=== PATIENT | female | born 1945 | race Caucasian/White ===

== ENCOUNTER 2016-12-15 11:54 | Emergency (ER) | payer OTHER, BC ==
--- NOTE | 2016-12-15 12:03 | PDOC ---
History of Present Illness - General Chief Complaint: Pain Stated Complaint: RIGHT FACE, EAR, JAW PAIN X 2 DAYS Time Seen by Provider: 12/15/16 12:00 History Source: Patient Exam Limitations: No Limitations - History of Present Illness Initial Comments: 71 y/o F w/no sig PMH presents to [facility] for R ear pain for the last 2 days. Pt has also noticed decreased hearing in R ear over last two days. 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 The pain in ear is also causing headache and some jaw pain. She felt like she had some wetness in her R ear but denies any discharge from her ear or any swelling around her ear. Pt denies any trauma to ear, recent flights, loud sounds recently, fevers, chills, tears or drainage from eyes and nose, cough, sore throat, sob, chest pain, abd pain, peripheral swelling. Past History - Travel Traveled outside of the country in the last 30 days: No Close contact w/someone who was outside of country & ill: No - Past Medical History Allergies/Adverse Reactions: Allergies Allergy/AdvReac Type Severity Reaction Status Date / Time Sulfa (Sulfonamide Allergy Mild Verified 12/15/16 12:01 Antibiotics) [Sulfa(Sulfonamide Antibiotics)] Tetracyclines Allergy Unknown Verified 12/15/16 12:01 Home Medications: Ambulatory Orders Amoxicillin/Potassium Clav [Augmentin 500-125 Tablet] 1 each PO BID #14 tablet 12/15/16 Ibuprofen [Advil -] 200 mg PO ONCE 12/15/16 Thyroid Disease: Yes - Psycho/Social/Smoking Cessation Hx Anxiety: No Suicidal Ideation: No Smoking Status: No Smoking History: Never smoked Have you smoked in the past 12 months: No Number of Cigarettes Smoked Daily: 0 Hx Alcohol Use: No Drug/Substance Use Hx: No Substance Use Type: None Review of Systems - Review of Systems Able to Perform ROS?: Yes Comments:: CONSTITUTIONAL: Absent: fever, no chills, EYES: Absent: visual changes, eye drainage 0ENT: +R ear pain, +decreased hearing in R ear, +R sided jaw pain Absent: no sore throat, ear drainage, nasal drainage CARDIOVASCULAR: Absent: chest pain, no palpitations RESPIRATORY: Absent: cough, no SOB GI: Absent: abdominal pain, no nausea, no vomiting SKIN: Absent: rash NEURO: +headache *Physical Exam - Physical Exam Comments: GENERAL: Well-appearing, well-nourished. No apparent distress. HEENT: +R ear perforated tympanic membrane with no drainage. +Decreased finger rub hearing on R compared to L. L ear tympanic membrane intact with +light reflex and no drainage. Normocephalic, atraumatic. EOM intact. No sinus pressure or pain. CARDIOVASCULAR: Normal S1, S2. Regular rate and rhythm. PULMONARY: Clear to auscultation bilaterally. ABDOMEN: Soft, non-distended, non-tender. EXTREMITIES: Normal ROM in all four extremities. No gross deformities. SKIN: Warm, dry. No rash NEUROLOGICAL: No focal neurological deficits Medical Decision Making - Medical Decision Making 12/15/16 12:29 Pt with R ear drum perforation on physical exam. Will prescribe augmentin 500 bid for 7 days and to follow up with ENT within the next week. Dr. Paul Cooper referred to patient. Pt advised to come back to ER if symptoms worsen. *DC/Admit/Observation/Transfer Diagnosis at time of Disposition: Perforated tympanic membrane Qualifiers: Laterality: right Qualified Code(s): H72.91 - Unspecified perforation of tympanic membrane, right ear - Discharge Dispostion Disposition: HOME Condition at time of disposition: Stable - Prescriptions Prescriptions: Amoxicillin/Potassium Clav [Augmentin 500-125 Tablet] 1 each PO BID #14 tablet - Referrals Referrals: Paul Cooper MD [Staff Physician] - - Patient Instructions Printed Discharge Instructions: DI for Tympanic Membrane Perforation-Adult Additional Instructions: You must see an ears nose throat physician for your perforated right ear drum. You can see Dr. Paul Cooper for your perforated ear drum. You should also follow up with your primary care physician. You have been prescribed augmentin, an antibiotic, to take 2 times per day for 7 days. Complete the full course of this medication. Keep your right ear from getting wet. While showering wear a shower cap. Do not use q-tips or ear swabs in your ears. If your symptoms worsen, come back to the emergency room.
[2016-12-15 12:11] VITALS: BP 140/82; PULSE 80; TEMP 97.8; BMI 25.2
--- NOTE | 2016-12-15 12:22 | PDOC ---
Attending Attestation - Resident Resident Name: Agustin Alcala - ED Attending Attestation I have performed the following: I have examined & evaluated the patient, The case was reviewed & discussed with the resident, I agree w/resident's findings & plan, Exceptions are as noted - HPI HPI: 12/15/16 12:17 The patient is a 71 year old female, immunocompetent, who presents with right ear pain for several days. She has had slow chronic progressive hearing loss in that ear, which she attributes to occupational exposure to loud noises. The hearing loss worsened two days ago. See denies fever. She denies discharge. No air travel. No ear trauma. She has an ENT physician. 12/15/16 12:22 - Physicial Exam PE: 12/15/16 12:18 She is well appearing and in no acute distress Right TM with inferior perforation No tenderness with ear manipulation No tenderness with mastoid percussion - Medical Decision Making 12/15/16 12:22 The patient is well-appearing and in no acute distress There is physical examination evidence of right-sided tympanic membrane perforation She will follow up with her ear nose and throat physician on Saturday or Saturday Clinical impression: Right-sided tympanic membrane perforation I discussed the physical exam findings, ancillary test results and final diagnoses with the patient. I answered all of the patient's questions. The patient was satisfied with the care received and felt comfortable with the discharge plan and treatment plan. The patient will call their primary care physician within 24 hours to arrange follow-up and will return to the Emergency Department with any new, persistent or worsening symptoms.
== END 2016-12-15 12:40 | disposition home or self-care (01) ==
LOC: FER 11:54 → SUPCPDRO 11:54 → FER 12:40
DX: H72.91 Unspecified perforation of tympanic membrane, right ear (principal)
CPT/HCPCS: 99281-25

== ENCOUNTER 2017-07-04 08:25 | Emergency (ER) | payer OTHER, BC ==
[2017-07-04] MEDS ORDERED: NAPROXEN 500 MG TABLET (FP) PO ONE (08:53)
[2017-07-04] MEDS ORDERED: guaiFENesin 200 MG/10 ML 10 ML UNIT-DOSE CUPS PO ONE ×2 (08:53→08:54)
[2017-07-04 08:54] VITALS: BP 151/90; PULSE 83; TEMP 98; BMI 25.2
--- NOTE | 2017-07-04 08:55 | PDOC ---
History of Present Illness - General Chief Complaint: Sore Throat Stated Complaint: SORE THROAT Time Seen by Provider: 07/04/17 08:35 History Source: Patient Exam Limitations: No Limitations - History of Present Illness Initial Comments: 07/04/17 08:58 72 year old female c/ hx of goiter (under observation, not on meds) presents with sore throat and nonproductive cough x several days. Pt's daughter was initially sick with URI. And now the patient has for the last few days been endorsing these symptoms. Denies SOB. Denies chest pain, fevers. States that she has been coughing persistently and has a sore throat. She has been taking benadryl, dayquil, nyquil with minimal effect. Because of the persistent coughing, pt came into the ED for further evaluation. Past History - Past Medical History Allergies/Adverse Reactions: Allergies Allergy/AdvReac Type Severity Reaction Status Date / Time Sulfa (Sulfonamide Allergy Mild Verified 07/04/17 08:26 Antibiotics) [Sulfa(Sulfonamide Antibiotics)] Tetracyclines Allergy Unknown Verified 07/04/17 08:26 Home Medications: Ambulatory Orders Albuterol Sulfate Inhaler - [Ventolin Hfa Inhaler -] 1 - 2 inh PO QID PRN #1 inhaler 07/04/17 Benzonatate [Tessalon Pearls -] 100 mg PO TID PRN #21 capsule 07/04/17 D-Methorphan/Acetamin/Doxylamn [Vicks Nyquil Cold & Flu Liquid] 295 ml PO PRN PRN 07/04/17 Naproxen [Naprosyn -] 500 mg PO BID PRN #14 tablet 07/04/17 Thyroid Disease: Yes - Suicide/Smoking/Psychosocial Hx Smoking Status: No Smoking History: Never smoked Have you smoked in the past 12 months: No Number of Cigarettes Smoked Daily: 0 Hx Alcohol Use: No Drug/Substance Use Hx: No Substance Use Type: None Review of Systems - Review of Systems Able to Perform ROS?: Yes Comments:: 07/04/17 08:59 GENERAL/CONSTITUTIONAL: No fever, weakness. HEAD, EYES, EARS, NOSE AND THROAT: No change in vision. No ear pain or discharge. + sore throat. CARDIOVASCULAR: No chest pain or shortness of breath. RESPIRATORY: +cough. No wheezing, or hemoptysis. GASTROINTESTINAL: No abdominal pain, nausea, vomiting, diarrhea, or decreased PO intolerance. GENITOURINARY: No dysuria, frequency, or change in urination. MUSCULOSKELETAL: No joint or muscle swelling or pain. No neck or back pain. SKIN: No rash NEUROLOGIC: No headache, vertigo, loss of consciousness, or change in strength/ sensation. ENDOCRINE: No increased thirst. No abnormal weight change. HEMATOLOGIC/LYMPHATIC: No anemia, easy bleeding, or history of blood clots. ALLERGIC/IMMUNOLOGIC: No hives or skin allergy. *Physical Exam - Physical Exam Comments: 07/04/17 08:59 GENERAL: Awake, alert, and fully oriented, in no acute distress. HEAD: No signs of trauma EYES: PERRLA, EOMI, sclera anicteric, conjunctiva clear ENT: Auricles normal inspection, hearing grossly normal, nares patent, oropharynx clear without exudates. NECK: Normal ROM, supple, no lymphadenopathy, JVD, or masses LUNGS: Breath sounds equal, clear to auscultation bilaterally. No wheezes, and no crackles HEART: Regular rate and rhythm, normal S1 and S2, no murmurs, rubs or gallops ABDOMEN: Soft, nontender, normoactive bowel sounds. No guarding, no rebound. No masses EXTREMITIES: Normal range of motion, no edema. No clubbing or cyanosis. No cords, erythema, or tenderness NEUROLOGICAL: Cranial nerves II through XII grossly intact. Normal speech, normal gait SKIN: Warm, Dry, normal turgor, no rashes or lesions noted. Medical Decision Making - Medical Decision Making 07/04/17 09:00 Vital Signs Temp Pulse Resp BP Pulse Ox 98 F 83 20 151/90 98 07/04/17 08:26 07/04/17 08:26 07/04/17 08:26 07/04/17 08:26 07/04/17 08:26 Patient's lungs are clear and breathing is unlabored. Oropharynx is clear. I suspect patient likely has a viral syndrome. However, given her age, I had given her strict return precautions if her symptoms worsen. Supportive care and follow-up primary care physician. I discussed the physical exam findings, ancillary test results and final diagnoses with the patient. I answered all of the patient's questions. The patient was satisfied with the care received and felt comfortable with the discharge plan and treatment plan. The patient will call their primary care physician within 24 hours to arrange follow-up and will return to the Emergency Department with any new, persistant or worsening symptoms. *DC/Admit/Observation/Transfer Diagnosis at time of Disposition: Viral syndrome - Discharge Dispostion Disposition: HOME Condition at time of disposition: Stable Admit: No - Prescriptions Prescriptions: Albuterol Sulfate Inhaler - [Ventolin Hfa Inhaler -] 1 - 2 inh PO QID PRN #1 inhaler PRN Reason: Cough Benzonatate [Tessalon Pearls -] 100 mg PO TID PRN #21 capsule PRN Reason: Cough Naproxen [Naprosyn -] 500 mg PO BID PRN #14 tablet PRN Reason: Sore Throat/Fever - Referrals - Patient Instructions Printed Discharge Instructions: DI for Viral Pharyngitis, DI for Viral Syndrome Additional Instructions: Please follow up with your doctor. Take the prescribed medications as needed for symptom control. If you notice that your symptoms are worsening for the last several few days, or difficulty breathing, please return to the ER for further evaluation. - Post Discharge Activity
[2017-07-04] MEDS ORDERED: guaiFENesin/D-METHORPHAN HB 10 ML UNIT-DOSE CUPS ONE (08:57)
[2017-07-04] MEDS ORDERED: NAPROXEN 500 MG TABLET (FP) ONE (08:57)
== END 2017-07-04 09:03 | disposition home or self-care (01) ==
LOC: FER 08:25
DX: B34.9 Viral infection, unspecified (principal)
CPT/HCPCS: 99282-25

== ENCOUNTER 2017-08-24 11:21 | Emergency (ER) | payer OTHER, BC ==
[2017-08-24] MEDS ORDERED: SODIUM CHLORIDE 1,000 ML IV STA (11:29)
[2017-08-24] MEDS ORDERED: ACETAMINOPHEN W/ CODEINE LIQ 5 ML CUP PO ONE (11:30)
[2017-08-24 11:39] VITALS: BP 148/72; PULSE 72; TEMP 97.6; BMI 24.9
[2017-08-24] MEDS ORDERED: ACETAMINOPHEN W/ CODEINE LIQ 5 ML CUP ONE (11:39)
--- NOTE | 2017-08-24 11:39 | PDOC ---
History of Present Illness - General Chief Complaint: Respiratory Stated Complaint: COUGH & CHEST PAIN Time Seen by Provider: 08/24/17 11:28 - History of Present Illness Initial Comments: 08/24/17 11:34 72 F with no PMH presents to ER with 4 days of cough and sore throat. Pt states that she first began to cough on Saturday, bringing up clear phlegm. She endorses subjective fevers as well with no measured temps, as well as a sore throat. Pt went to urgent care today and had flu swab that was negative. While at urgent care, she also described chest pressure associated with coughing, and she was subsequently sent to ER for further evaluation. Pt denies any chest pain at this time but states that she experiences chest pressure when she coughs. Denies exertional or pleuritic chest pain. Denies any SOB. Denies leg swelling or orthopnea. Denies h/o DVT/PE. Denies recent travel/ immobilization. Past History - Past Medical History Allergies/Adverse Reactions: Allergies Allergy/AdvReac Type Severity Reaction Status Date / Time Sulfa (Sulfonamide Allergy Mild Verified 07/04/17 08:26 Antibiotics) [Sulfa(Sulfonamide Antibiotics)] Tetracyclines Allergy Unknown Verified 07/04/17 08:26 Home Medications: Ambulatory Orders Albuterol Sulfate Inhaler - [Ventolin Hfa Inhaler -] 1 - 2 inh PO QID PRN #1 inhaler 07/04/17 Benzonatate [Tessalon Pearls -] 100 mg PO TID PRN #21 capsule 07/04/17 Dm/Acetaminophen/Doxylamine [Vicks Nyquil Cold & Flu Liquid] 295 ml PO PRN PRN 07/04/17 Naproxen [Naprosyn -] 500 mg PO BID PRN #14 tablet 07/04/17 RX: Azithromycin 250 mg PO DAILY #4 tablet 08/24/17 COPD: No Thyroid Disease: Yes - Suicide/Smoking/Psychosocial Hx Smoking Status: No Smoking History: Never smoked Have you smoked in the past 12 months: No Number of Cigarettes Smoked Daily: 0 Hx Alcohol Use: No Drug/Substance Use Hx: No Substance Use Type: None Respiratory Specific PMHX - Complaint Specific PMHX Angina: No Pulmonary Embolus: No Review of Systems - Review of Systems Comments:: 08/24/17 11:39 "GENERAL/CONSTITUTIONAL: No fever or chills. No weakness. HEAD, EYES, EARS, NOSE AND THROAT: No change in vision. No ear pain or discharge. No sore throat. CARDIOVASCULAR: + chest pressure, no shortness of breath. RESPIRATORY: + cough, no wheezing, or hemoptysis. GASTROINTESTINAL: No nausea, vomiting, diarrhea or constipation. GENITOURINARY: No dysuria, frequency, or change in urination. MUSCULOSKELETAL: No joint or muscle swelling or pain. No neck or back pain. SKIN: No rash NEUROLOGIC: No headache, vertigo, loss of consciousness, or change in strength/ sensation. ENDOCRINE: No increased thirst. No abnormal weight change. HEMATOLOGIC/LYMPHATIC: No anemia, easy bleeding, or history of blood clots. ALLERGIC/IMMUNOLOGIC: No hives or skin allergy. " *Physical Exam - Physical Exam Comments: 08/24/17 11:40 "GENERAL: Awake, alert, and fully oriented, in no acute distress HEAD: No signs of trauma EYES: PERRLA, EOMI, sclera anicteric, conjunctiva clear ENT: Auricles normal inspection, hearing grossly normal, nares patent, oropharynx clear without exudates. Moist mucosa NECK: Nontender, no stepoffs, Normal ROM, supple, no lymphadenopathy, JVD, or masses LUNGS: Breath sounds equal, clear to auscultation bilaterally. No wheezes, and no crackles HEART: Regular rate and rhythm, normal S1 and S2, no murmurs, rubs or gallops ABDOMEN: Soft, nontender, normoactive bowel sounds. No guarding, no rebound. No masses EXTREMITIES: Normal range of motion, no edema. No clubbing or cyanosis. No cords, erythema, or tenderness NEUROLOGICAL: Cranial nerves II through XII intact. 5/5 strength and sensation in all extremities, Normal speech, normal gait SKIN: Warm, Dry, normal turgor, no rashes or lesions noted. " Heart Score/ECG Review - History History: Slightly suspicious - Electrocardiogram EKG: Normal - Age Age: >/= 65 - Risk Factors Based on the list above the patient has:: No risk factors known - Troponin Troponin: </= normal limit - Score Heart Score - Total: 2 - ECG Impressions Comment:: 08/24/17 11:40 NSR, no ALIE/STDs, no TWIs, axis wnl, intervals wnl ED Treatment Course - LABORATORY CBC & Chemistry Diagram: 08/24/17 11:35 08/24/17 11:35 - RADIOLOGY Radiology Studies Ordered: Category Date Time Status CHEST PA & LAT [RAD] Stat Radiology 08/24/17 11:29 Ordered Medical Decision Making - Medical Decision Making 08/24/17 11:42 72 F with URI-like symptoms, referred to ER for chest pressure with cough. ACS unlikely given nonischemic EKG and atypical nature of pain. Pt with normal vitals, no s/s DVT or PE on exam. No clinicaly signs of volume overload either. Will obtain CXR to r/o PNA. - Labs, trop - CXR 08/24/17 12:55 Labs wnl, trop negative EKG wnl. CXR with ?infiltrate. Given pt's cough, will cover with azithromycin. Pt reassessed - feels well at this time. VItals normal. Clinically stable for DC. I discussed the physical exam findings, ancillary test results and final diagnoses with the patient. I answered all of the patient's questions. The patient was satisfied with the care received and felt comfortable with the discharge plan and treatment plan. The patient agrees to follow up with the primary care physician within 24-72 hours. 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 Your labwork and EKG today were normal. However, we cannot rule out all heart disease based on these tests. You need to see a rig superintendent as soon as possible (within 1 week) for a full evaluation of your heart. Call the number provided or ask your primary doctor for a referral to a rig superintendent. If you experience worsening chest pain, shortness of breath, or any other concerning symptoms, return to the ER immediately. - Post Discharge Activity - Attestations Physician Attestion: 08/24/17 12:58 I, Dr. Cachorro Ty MD, attest that this document has been prepared under my direction and personally reviewed by me in its entirety. I further attest, that it accurately reflects all work, treatment, procedures and medical decision -making performed by me.
[2017-08-24 11:50] LABS: BASO % 0.6 % (0-2.0); EOS % 0.9 % (0-4.5); HEMATOCRIT 37.5 % (32.4-45.2); HEMOGLOBIN 12.6 GM/dl (10.7-15.3); LYMPH % 4.8 % (8-40); MCH 28.8 pg (25.7-33.7); MCHC 33.7 g/dl (32.0-36.0); MEAN CELL VOLUME 85.4 fl (80-96); MONO % 8.3 % (3.8-10.2); NEUT % 85.4 % (42.8-82.8); PLATELET COUNT 229 K/MM3 (134-434); RBC 4.39 M/mm3 (3.60-5.2); WHITE BLOOD COUNT 5.8 K/mm3 (4.0-10.8)
[2017-08-24 12:07] LABS: ALBUMIN 4.6 g/dl (3.5-5.0); ALK PHOS 89 U/L (32-92); ANION GAP 7 (8-16); BILIRUBIN,TOTAL 0.8 mg/dl (0.2-1.0); BLOOD UREA NITROGEN 15 mg/dl (7-18); CALCIUM 9.8 mg/dl (8.4-10.2); CHLORIDE 100 mmol/L (98-107); CO2 27 mmol/L (22-28); CREATININE 0.6 mg/dl (0.6-1.3); GLUCOSE,RANDOM 103 mg/dl (74-106); LIPASE 18 U/L (22-51); POTASSIUM 4.2 mmol/L (3.5-5.1); SGOT/AST 18 U/L (10-42); SGPT/ALT 15 U/L (10-40); SODIUM 134 mmol/L (136-145); TOT PROT 8.1 g/dl (6.4-8.3)
[2017-08-24] MEDS ORDERED: AZITHROMYCIN 500 MG TABLET PO ONE (12:47)
[2017-08-24] MEDS ORDERED: AZITHROMYCIN 500 MG TABLET ONE (12:56)
--- NOTE | 2017-08-26 15:57 | EKG ---
Test Reason : Blood Pressure : / mmHG Vent. Rate : 081 BPM Atrial Rate : 081 BPM P-R Int : 160 ms QRS Dur : 090 ms QT Int : 376 ms P-R-T Axes : 074 -13 024 degrees QTc Int : 436 ms NORMAL SINUS RHYTHM RSR' OR QR PATTERN IN V1 SUGGESTS RIGHT VENTRICULAR CONDUCTION DELAY NO PREVIOUS ECGS AVAILABLE Confirmed by MD MENDOZA MARJORY ([id number]) on 08/26/2017 3:56:55 PM Referred By: HEAVENLY Confirmed By:KEVIN MENDOZA MD
== END 2017-08-24 13:08 | disposition home or self-care (01) ==
LOC: FER 11:21
PROC: 3E0337Z Introduction of Electrolytic and Water Balance Substance into Peripheral Vein, Percutaneous Approach (ICD-10-PCS; principal; 2017-08-24)
DX: B34.9 Viral infection, unspecified (principal)
CPT/HCPCS: 36415; 71046-TC; 80053; 82550; 83690; 83880; 84484; 85025; 93005; 99282-25

== ENCOUNTER 2017-11-28 22:59 | Emergency (ER) | payer OTHER, BC ==
[2017-11-28 23:08] VITALS: BP 176/88; PULSE 84; TEMP 97.6; BMI 25.7
[2017-11-28] MEDS ORDERED: KETOROLAC TROMETHAMINE 60 MG/2 ML VIAL IM ONE (23:20)
[2017-11-28] MEDS ORDERED: MAG HYDROX/AL HYDROX/SIMETH 30 ML UNIT-DOSE CUP PO ONE (23:21)
--- NOTE | 2017-11-28 23:22 | PDOC ---
History of Present Illness - General Chief Complaint: Chest Pain Stated Complaint: RT ARM AND CHEST PAIN Time Seen by Provider: 11/28/17 23:05 History Source: Patient Exam Limitations: No Limitations - History of Present Illness Initial Comments: 11/28/17 23:17 This is a 72-year-old female who comes in complaining of pain in her upper shoulder radiating down the outside of her upper arm as well as some epigastric discomfort. Patient said that the shoulder and arm pain began after she was lifting and holding up a heavy mattress yesterday. Patient said the pain has been constant it is worse with movement worse with lifting her arm. Patient took 200 mg of ibuprofen for the pain without improvement. Patient said she is also been having an epigastric discomfort 2 months. Patient saw her primary care doctor had a workup for it and was told that the workup was negative specifically a cardiac workup was negative. Patient however does not indicate that a stress test was part of the negative workup. Patient has no risk factors and denies history of hypertension, high cholesterol, diabetes, family history, smoking or drug use. PAST MEDICAL HISTORY: no significant history PAST SURGICAL HISTORY: no significant history FAMILY HISTORY: no pertinant history SOCIAL HISTORY: Pt lives with family and is employed. MEDICATIONS: reviewed ALLERGIES: As per nursing notes Review of Systems General: No fevers or chills, no weakness, no weight loss HEENT: No change in vision. No sore throat,. No ear pain CardioVascular: No chest pain or shortness of breath Respiratory:No cough, or wheezing. Gastrointestinal: no nausea, vomitting, diarrhea or constipation, No rectal bleeding Genitourinary: No dysuria, hematuria, or frequency Musculoskeletal: No joint or muscle pain or swelling Neurologic: No headache, vertigo, dizziness or loss of consciousness Psychiatric: nor depression Skin: No rashes or easy bruising Endocrine: no increased thirst or abnormal weight change Allergic: no skin or latex allergy All other systems reviewed and normal Exam: General: Well-nourished well-developed individual, in moderate distress HEENT: Throat: Normal, tonsils normal, no erythema or exudate Neck: Supple, no meningeal signs, no lymphadenopathy, cervical spine is not tender to palpation Eyes::Pupils equal reactive and round, extraocular motion intact Chest: Nontender to palpation Cardiac: S1-S2 normal, regular rate and rhythm, no murmurs rubs or gallops Respiratory: Lungs clear to auscultation bilateral Abdomen: Soft, nondistended, normal bowel sounds, nontender to palpation diffusely Extremities: Warm, dry, no cyanosis, clubbing, or edema Right upper extremity: There is tenderness on palpation of the muscles of the arm as well as the upper shoulder and upper back area. Neurovascular is intact. Skin: No rashes Neuro: Alert and oriented x3, CN II - XII intact, nonfocal exam with normal strength, normal sensation, normal reflexes, normal gait, Psych: Normal mood and affect 11/28/17 23:22 Medical decision making: This is a 72-year-old female who comes in complaining of left arm pain post lifting a heavy mattress yesterday. In addition the patient is complaining of 2 months of epigastric discomfort. We will obtain EKG, troponin, CPK. We'll give patient some Maalox and Toradol. We'll reassess and evaluate results of workup. EKG is normal sinus rhythm with a incomplete right bundle branch block. There are no acute ST-T wave changes. When compared with prior EKG of July this year and is unchanged 11/28/17 23:53 Reevaluation. Patient's pain is minimally improved but not resolved. Patient's troponin was negative and her CPK was normal Patient's heart scores 3 Discussed with patient the possibility of the pain most likely being secondary to nerve compression in the neck area. Advised patient to follow-up with her primary care doctor and maybe an MRI. Past History - Past Medical History Allergies/Adverse Reactions: Allergies Allergy/AdvReac Type Severity Reaction Status Date / Time Sulfa (Sulfonamide Allergy Mild Verified 07/04/17 08:26 Antibiotics) [Sulfa(Sulfonamide Antibiotics)] Tetracyclines Allergy Unknown Verified 07/04/17 08:26 Home Medications: Ambulatory Orders Ibuprofen [Motrin Ib] 200 mg PO ONCE 11/28/17 COPD: No Thyroid Disease: Yes - Suicide/Smoking/Psychosocial Hx Smoking Status: No Smoking History: Never smoked Have you smoked in the past 12 months: No Number of Cigarettes Smoked Daily: 0 Hx Alcohol Use: No Drug/Substance Use Hx: No Substance Use Type: None Abd/GI Specific PMHX - Complaint Specific PMHX GERD: Yes *Physical Exam - Vital Signs Last Vital Signs Temp Pulse Resp BP Pulse Ox 97.6 F 84 18 176/88 98 11/28/17 23:05 11/28/17 23:05 11/28/17 23:05 11/28/17 23:05 11/28/17 23:05 Heart Score/ECG Review - History History: Slightly suspicious - Electrocardiogram EKG: Non specific repolarization disturbance - Age Age: >/= 65 - Risk Factors Based on the list above the patient has:: No risk factors known - Troponin Troponin: </= normal limit - Score Heart Score - Total: 3 *DC/Admit/Observation/Transfer Diagnosis at time of Disposition: Right arm pain - Discharge Dispostion Disposition: HOME Condition at time of disposition: Stable Admit: No - Referrals Referrals: ON STAFF,NOT [Primary Care Provider] - - Patient Instructions Additional Instructions: You can continue to take ibuprofen for the pain don't take on an empty stomach take it with food intake 2 tablets 3 times a day. Follow-up with your doctor either tomorrow or Saturday if you still continued to have pain. Return to the emergency department immediately with ANY new, persistent or worsening symptoms. Continue any medications as previously prescribed by your physician. You should follow up with your primary doctor as soon as possible regarding today's emergency department visit. . Please make sure your doctor reviews the results of your emergency evaluation. Thank you for coming to the Emergency Department today for your care. It was a pleasure to see you today. Please note that your evaluation is INCOMPLETE until you follow-up with your doctor. - Post Discharge Activity
--- NOTE | 2017-12-05 14:18 | EKG ---
Test Reason : Blood Pressure : / mmHG Vent. Rate : 074 BPM Atrial Rate : 074 BPM P-R Int : 168 ms QRS Dur : 090 ms QT Int : 390 ms P-R-T Axes : 061 -19 006 degrees QTc Int : 432 ms NORMAL SINUS RHYTHM RSR' OR QR PATTERN IN V1 SUGGESTS RIGHT VENTRICULAR CONDUCTION DELAY BORDERLINE ECG WHEN COMPARED WITH ECG OF 24-AUG-2017 11:52, NO SIGNIFICANT CHANGE WAS FOUND Confirmed by ALIZA TEJEDA, INDU ([id number]) on 12/05/2017 2:18:28 PM Referred By: BETHANIE MALDONADO Confirmed By:INDU ABRAMS MD
== END 2017-11-28 23:58 | disposition home or self-care (01) ==
LOC: FER 22:59
PROC: 3E0233Z Introduction of Anti-inflammatory into Muscle, Percutaneous Approach (ICD-10-PCS; principal; 2017-11-28)
DX: M79.601 Pain in right arm (principal); K21.9 Gastro-esophageal reflux disease without esophagitis
CPT/HCPCS: 36415; 82550; 84484; 93005; 93010; 99281-25

== ENCOUNTER 2019-01-31 05:58 | Emergency (ER) | payer OTHER, BC ==
[2019-01-31 06:08] VITALS: BMI 25.7
--- NOTE | 2019-01-31 06:27 | PDOC ---
History of Present Illness - General Chief Complaint: Pain, Acute Stated Complaint: LT FLANK PAIN Time Seen by Provider: 01/31/19 06:17 History Source: Patient Exam Limitations: No Limitations - History of Present Illness Initial Comments: 01/31/19 06:33 This is a 74-year-old female who comes in complaining of left flank pain. Patient said she has had the pain times several days went to see her primary care doctor 3 days ago but because of the January holiday's was unable to get an ultrasound or any sort of evaluation. However she said her doctor Boby did test her urine and said it was fine but then gave her antibiotics to take. Patient took 3 doses of the antibiotics. Patient denies any fevers or chills. Patient is complaining of some mild nausea but hasn't vomited. Patient is otherwise healthy and takes no medications. Allergies: as per nursing notes Past Medical History: none Social history: Lives with family. No smoking. No alcohol. No illicit drugs. Surgical history: None General: No fevers or chills, no weakness, no weight loss HEENT: No change in vision. No sore throat,. No ear pain CardioVascular: no chest discomfort. No shortness of breath Respiratory:No cough, or wheezing. Gastrointestinal: no nausea, vomiting, diarrhea or constipation, No rectal bleeding, left lower quadrant and left flank pain as per history of present illness Genitourinary: No dysuria, hematuria, or frequency Musculoskeletal: No joint or muscle pain or swelling Neurologic: No headache, vertigo, dizziness or loss of consciousness Psychiatric: nor depression Skin: No rashes or easy bruising Endocrine: no increased thirst or abnormal weight change Allergic: no skin or latex allergy All other systems reviewed and normal Exam: General: Well-nourished well-developed individual, no acute distress HEENT: Throat: Normal, tonsils normal, no erythema or exudate Neck: Supple, no meningeal signs, no lymphadenopathy Eyes::Pupils equal reactive and round, extraocular motion intact Chest: Nontender to palpation Cardiac: S1-S2 normal, regular rate and rhythm, no murmurs rubs or gallops Respiratory: Lungs clear to auscultation bilateral Abdomen: Soft, nondistended, normal bowel sounds, moderate tenderness on palpation of the left lower quadrant there is no guarding or rebound. Extremities: Warm, dry, no cyanosis, clubbing, or edema Skin: No rashes Neuro: Alert and oriented x3, CN II - XII intact, nonfocal exam with normal strength, normal sensation, normal reflexes, normal gait, Psych: Normal mood and affect. Assessment plan: This is a 74-year-old female who comes in complaining of left flank and left lower quadrant pain. On my exam patient had moderate tenderness in her left lower quadrant and very minimal flank tenderness but no CVA tenderness. Patient had seen her primary care doctor and was started on Cipro even though she was told that she did not have a urinary tract infection. Patient took 3 tablets and stop taking it. Workup initiated including CBC, comp, CAT scan abdomen and pelvis with IV contrast. Patient medicated with pain medication and given antiemetics and fluids. Differential diagnoses includes renal colic, diverticulitis, viral etiology, urinary tract infection. Care of this patient was transferred to Dr. Chan at 7 AM. Case discussed in detail with oncoming Emergency Physician including history, physical exam and ancillary studies. Oncoming Emergency Physician has assumed care for the patient and will complete the evaluation and treatment. Patient is aware of the plan. Pt is clinically unchanged and stable. 01/31/19 06:49 Past History - Past Medical History Allergies/Adverse Reactions: Allergies Allergy/AdvReac Type Severity Reaction Status Date / Time Sulfa (Sulfonamide Allergy Mild Verified 07/04/17 08:26 Antibiotics) [Sulfa(Sulfonamide Antibiotics)] Tetracyclines Allergy Unknown Verified 07/04/17 08:26 Home Medications: Ambulatory Orders Ciprofloxacin [Cipro (Restricted To Id)] 250 mg PO BID 01/31/19 COPD: No Thyroid Disease: Yes - Suicide/Smoking/Psychosocial Hx Smoking Status: No Smoking History: Never smoked Have you smoked in the past 12 months: No Number of Cigarettes Smoked Daily: 0 Hx Alcohol Use: No Drug/Substance Use Hx: No Substance Use Type: None Abd/GI Specific PMHX - Complaint Specific PMHX GERD: Yes *Physical Exam - Vital Signs Last Vital Signs Temp Pulse Resp BP Pulse Ox 98.2 F 83 18 157/85 98 01/31/19 06:01 01/31/19 06:01 01/31/19 06:01 01/31/19 06:01 01/31/19 06:01 *DC/Admit/Observation/Transfer Diagnosis at time of Disposition: Abdominal pain Qualifiers: Abdominal location: left lower quadrant Qualified Code(s): R10.32 - Left lower quadrant pain - Discharge Dispostion Condition at time of disposition: Stable - Referrals - Patient Instructions - Post Discharge Activity
[2019-01-31] MEDS ORDERED: morphine CARPU-JECT 2 MG/1 ML DISP.SYRIN IVPUSH ONE ×2 (06:29→11:00)
[2019-01-31] MEDS ORDERED: KETOROLAC TROMETHAMINE 30 MG/1 ML VIAL IVPUSH ONE (06:29)
[2019-01-31] MEDS ORDERED: SODIUM CHLORIDE 1,000 ML IV ONE (06:29)
[2019-01-31] MEDS ORDERED: ONDANSETRON 4 MG/2 ML VIAL IVPB ONE (06:30)
[2019-01-31] MEDS ORDERED: KETOROLAC TROMETHAMINE 30 MG/1 ML VIAL ONE (06:36)
[2019-01-31] MEDS ORDERED: ONDANSETRON 4 MG/2 ML VIAL ONE (06:36)
[2019-01-31] MEDS ORDERED: morphine SULFATE 4 MG/ML VIAL ONE ×2 (06:36→11:20)
--- NOTE | 2019-01-31 07:12 | PDOC ---
*Physical Exam - Vital Signs Last Vital Signs Temp Pulse Resp BP Pulse Ox 98.2 F 83 18 157/85 98 01/31/19 06:01 01/31/19 06:01 01/31/19 06:01 01/31/19 06:01 01/31/19 06:01 - Physical Exam Comments: 01/31/19 08:28 Gen: aaox3, nad heart: +s1s2 reg lungs: cta b/l abd: soft, mild LLQ ttp, no cva ttp, no rebound or guarding ext: no c/c/e ED Treatment Course - LABORATORY CBC & Chemistry Diagram: 01/31/19 06:34 01/31/19 08:15 - Medications Given in the ED: ED Medications Discontinued Medications Generic Name Dose Route Start Last Admin Trade Name Isidro PRN Reason Stop Dose Admin Ketorolac Tromethamine 30 mg 01/31/19 06:29 01/31/19 06:40 Toradol Injection - IVPUSH 01/31/19 06:30 30 mg ONCE ONE Administration Morphine Sulfate 2 mg 01/31/19 06:29 01/31/19 06:40 Morphine Injection - IVPUSH 01/31/19 06:30 2 mg ONCE ONE Administration Ondansetron HCl 4 mg 01/31/19 06:30 01/31/19 06:40 Zofran Injection IVPB 01/31/19 06:31 4 mg ONCE ONE Administration Medical Decision Making - Medical Decision Making 01/31/19 08:29 a/p: 74yo female with LLQ pain -pt signed out by the prior ed attending pending labs and imaging -had ua performed by PMD that was neg, but started on cipro - took 3 doses -still with LLQ pain -concern for diverticulitis vs renal colic -labs and ct pending. -still with pain after morphine, will add iv tylenol 01/31/19 08:55 no elevated wbc chem reviewed pending ct 01/31/19 09:56 pt states allergy to iv contrast, will change to noncontrast 01/31/19 10:11 pt has been ambulatory in the ED with a steady gait pending ct read no acute ua findings 01/31/19 10:59 ct shows gallstones in the neck, ordered ultrasound also thickening of the small bowel- infectious vs infiltrative discussed imaging with the patient. she still has pain. will start flagyl, npo, ivf hydration 01/31/19 11:47 pt states feeling better pain resolving pending official ultrasound read discussed clear liquids and flagyl at home discussed GI follow up and follow up with PMD on saturday Dr. Araiza answered all questions 01/31/19 12:18 pt states she feels better agrees with the plan understands clear liquids and brat diet understands all reasons to return to the ED stable for dc to home *DC/Admit/Observation/Transfer Diagnosis at time of Disposition: Inflammation of small intestine Abdominal pain Qualifiers: Abdominal location: left lower quadrant Qualified Code(s): R10.32 - Left lower quadrant pain - Discharge Dispostion Disposition: HOME Condition at time of disposition: Stable Decision to Admit order: No - Prescriptions Prescriptions: metroNIDAZOLE [Flagyl -] 500 mg PO TID #21 tablet - Referrals Referrals: Heladio Bro DO [Staff Physician] - - Patient Instructions Printed Discharge Instructions: DI for Abdominal Pain-Adult Additional Instructions: Please drink plenty of clear liquids. After 24 hours of clear liquids, please slowly advance your diet to BRAT (bananas, rice, apple sauce and toast). When pain resolved you can slowly advance your diet back to regular. Please take all antibiotics as prescribed. Please make an appointment to see your PMD - Dr. Araiza , and make an appointment to see the wet room worker. Please return to the ED with any further concerns, worsening symptoms, and complaints. - Post Discharge Activity
[2019-01-31] MEDS ORDERED: ACETAMINOPHEN INJECTION 100 ML IVPB ONE (08:20)
[2019-01-31] MEDS ORDERED: ACETAMINOPHEN 1000 MG/100 ML VIAL (NON FORMULARY) IVPB ONE (08:20)
[2019-01-31 08:26] LABS: BASO % 0.6 % (0-2.0); EOS % 1.8 % (0-4.5); HEMATOCRIT 37.4 % (32.4-45.2); HEMOGLOBIN 12.5 GM/dl (10.7-15.3); LYMPH % 20.5 % (8-40); MCH 28.2 pg (25.7-33.7); MCHC 33.4 g/dl (32.0-36.0); MEAN CELL VOLUME 84.5 fl (80-96); MEAN PLT VOLUME 9.9 fl (7.5-11.1); NEUT % 70.1 % (42.8-82.8); PLATELET COUNT 250 K/MM3 (134-434); RBC 4.42 M/mm3 (3.60-5.2); RDW 12.9 % (11.6-15.6); WHITE BLOOD COUNT 4.6 K/mm3 (4.0-10.8)
[2019-01-31 08:48] LABS: ALBUMIN 3.7 g/dl (3.4-5.0); BILIRUBIN,TOTAL 0.6 mg/dl (0.2-1); CALCIUM 8.6 mg/dl (8.5-10); CREATININE 0.6 mg/dl (0.55-1.3); POTASSIUM 4.4 mmol/L (3.5-5.1); TOT PROT 6.8 g/dl (6.4-8.2)
[2019-01-31] MEDS ORDERED: SODIUM CHLORIDE 0.9% 1000 ML INFUS.BAG IV ONE (10:58)
[2019-01-31 12:00] VITALS: BP 155/74; PULSE 64
[2019-01-31 12:04] VITALS: TEMP 97.8
== END 2019-01-31 12:40 | disposition home or self-care (01) ==
LOC: FER 05:58
PROC: 3E0337Z Introduction of Electrolytic and Water Balance Substance into Peripheral Vein, Percutaneous Approach (ICD-10-PCS; principal; 2019-01-31)
PROC: 3E033NZ Introduction of Analgesics, Hypnotics, Sedatives into Peripheral Vein, Percutaneous Approach (ICD-10-PCS; 2019-01-31)
PROC: 3E0333Z Introduction of Anti-inflammatory into Peripheral Vein, Percutaneous Approach (ICD-10-PCS; 2019-01-31)
PROC: 3E033GC Introduction of Other Therapeutic Substance into Peripheral Vein, Percutaneous Approach (ICD-10-PCS; 2019-01-31)
PROC: 3E03329 Introduction of Other Anti-infective into Peripheral Vein, Percutaneous Approach (ICD-10-PCS; 2019-01-31)
DX: R10.32 Left lower quadrant pain (principal); E07.9 Disorder of thyroid, unspecified
CPT/HCPCS: 36415; 74176-TC; 76705-TC; 80053; 81003; 81015; 85025; 87086; 99283-25; J0131; J7030

== ENCOUNTER 2019-01-31 22:24 | Emergency (ER) | payer OTHER, BC ==
[2019-01-31 22:31] VITALS: BP 188/84; PULSE 89; TEMP 97.6; BMI 23.9
[2019-02-01] MEDS ORDERED: HYOSCYAMINE SULFATE 0.125 MG *ODT PO ONE (00:16)
[2019-02-01] MEDS ORDERED: HYOSCYAMINE SULFATE 0.125 MG *ODT ONE (00:17)
--- NOTE | 2019-02-04 20:37 | PDOC ---
Documentation entered by Michael Muse SCRIBE, acting as scribe for Carey Potter MD. Carey Potter MD: This documentation has been prepared by the dangeloeMicha Aiswarya, SCRIBE, under my direction and personally reviewed by me in its entirety. I confirm that the documentation accurately reflects all work, treatment, procedures, and medical decision making performed by me. History of Present Illness - General Chief Complaint: Pain, Acute Stated Complaint: PAIN Time Seen by Provider: 01/31/19 22:26 - History of Present Illness Initial Comments: This 74-year-old woman with no significant past medical history returns to the ER approximately 12 hours after discharge: She was seen here this morning with left lower quadrant pain. An extensive workup including ultrasound/abdominal and pelvic CT/laboratory evaluation suggested the patient had intestinal inflammation (infectious versus infiltrative) and she was discharged on course of PO Flagyl and light diet. Patient states that she mainly drank liquids as well as taking her Flagyl during the day. This evening, she had sharp left lower quadrant pain, similar to earlier episode. She took ibuprofen with some improvement in the pain but became nervous and came back to the emergency room. She had brief nausea when pain was severe but this has resolved. Patient had no vomiting or fever this evening. Past History - Past Medical History Allergies/Adverse Reactions: Allergies Allergy/AdvReac Type Severity Reaction Status Date / Time Sulfa (Sulfonamide Allergy Mild Verified 07/04/17 08:26 Antibiotics) [Sulfa(Sulfonamide Antibiotics)] Tetracyclines Allergy Unknown Verified 07/04/17 08:26 IV CONTRAST Allergy Uncoded 01/31/19 09:56 Home Medications: Ambulatory Orders Ciprofloxacin [Cipro (Restricted To Id)] 250 mg PO BID 01/31/19 metroNIDAZOLE [Flagyl -] 500 mg PO TID #21 tablet 01/31/19 Hyoscyamine Odt [Levsin Odt -] 0.125 mg PO BID PRN #6 tab.rapdis 02/01/19 COPD: No Thyroid Disease: Yes - Suicide/Smoking/Psychosocial Hx Smoking Status: No Smoking History: Never smoked Have you smoked in the past 12 months: No Number of Cigarettes Smoked Daily: 0 Hx Alcohol Use: No Drug/Substance Use Hx: No Substance Use Type: None Review of Systems - Review of Systems Able to Perform ROS?: Yes Comments:: 12 point review of systems is negative except for what is noted in the history of present illness *Physical Exam - Vital Signs Last Vital Signs Temp Pulse Resp BP Pulse Ox 97.6 F 89 18 188/84 H 98 01/31/19 22:25 01/31/19 22:25 01/31/19 22:25 01/31/19 22:25 01/31/19 22:25 - Physical Exam Comments: GENERAL:Adult female, anxious but in no acute distress HEAD: Normal with no signs of trauma. EYES: PERRLA, EOMI, sclera anicteric, conjunctiva clear. ENT: Ears normal, nares patent, oropharynx clear without exudates. Moist mucous membranes. NECK: Normal range of motion, supple without lymphadenopathy, JVD, or masses. LUNGS: Breath sounds equal, clear to auscultation bilaterally. No wheezes, and no crackles. HEART:Regular rate and rhythm, normal S1 and S2 without murmur, rub or gallop. ABDOMEN:.normal bowel sounds Minimal LLQ tenderness; No guarding or rebound.No masses No distention. EXTREMITIES: Normal range of motion, no edema. No clubbing or cyanosis. No erythema, or tenderness. NEUROLOGICAL: Cranial nerves II through XII grossly intact. Normal speech. No focal neurological deficits. MUSCULOSKELETAL: Back non-tender to palpation, no CVA tenderness SKIN: Warm, Dry, normal turgor, no rashes or lesions noted. Medical Decision Making - Medical Decision Making This 74-year-old woman, here earlier today with left lower quadrant/left flank pain, diagnosed with inflammation of the intestine after extensive workup presents with episode of sharp pain in her left lower quadrant. On presentation now, she is not in acute distress, saying that she has some mild discomfort in the area after taking ibuprofen for the pain. She has no other associated symptoms and exam reveals no significant tenderness in the area. She has normal bowel sounds is not distended. It appears that her episode of sharp pain is likely smooth muscle cramping of intestinal origin, now largely resolved. Does not appear to be any significant worsening of intestinal inflammation diagnosed earlier today. Patient given 1 dose of Levsin 0.125 milligrams ODT. Patient reported significant relief in her residual discomfort after Levsin antispasmodic medication. Patient will be discharged with small (#6) prescription for Levsin ODT to be used up to twice a day as needed for crampy abdominal pain. She should continue medications and dietary recommendations as previously discussed. She should follow-up with her PMD and gastroenterology as per discharge instructions given earlier. She should return to ER if she has severe, persistent pain or develops vomiting/fever. *DC/Admit/Observation/Transfer Diagnosis at time of Disposition: Inflammation of small intestine - Discharge Dispostion Disposition: HOME Condition at time of disposition: Stable - Prescriptions Prescriptions: Hyoscyamine Odt [Levsin Odt -] 0.125 mg PO BID PRN #6 tab.rapdis PRN Reason: Pain - Referrals - Patient Instructions Additional Instructions: continue light diet Continue plenty of fluids by mouth Continue Flagyl as previously prescribed Levsin ODT up to twice a day as needed for cramping pain You can also take Motrin as needed for pain Follow-up with your doctor and with forming mill operator within the next 2-3 days as previously discussed - Post Discharge Activity
== END 2019-02-01 01:04 | disposition home or self-care (01) ==
LOC: FER 22:24
DX: K52.9 Noninfective gastroenteritis and colitis, unspecified (principal)
CPT/HCPCS: 99282-25

== ENCOUNTER 2019-09-15 10:40 | Emergency (ER) | payer OTHER, BC ==
[2019-09-15 10:50] VITALS: BP 144/81; PULSE 89; TEMP 97.7; BMI 23.8
[2019-09-15] MEDS ORDERED: ONDANSETRON 4 MG/2 ML VIAL IVPUSH ONE (11:20)
[2019-09-15] MEDS ORDERED: LACTATED RINGERS SOLUTION 1,000 ML/1,000 ML INFUS.BAG IV STA (11:20)
[2019-09-15] MEDS ORDERED: ACETAMINOPHEN 1000 MG/100 ML VIAL (NON FORMULARY) IVPB ONE (11:20)
--- NOTE | 2019-09-15 11:25 | PDOC ---
Attending Attestation - Resident Resident Name: Desirae Durant - ED Attending Attestation I have performed the following: I have examined & evaluated the patient, The case was reviewed & discussed with the resident, I agree w/resident's findings & plan, Exceptions are as noted - HPI HPI: 09/15/19 11:25 74-year-old female history of diverticulosis here today complaining of left lower quadrant pain she is to have approximately 2 weeks. Patient states she had symptoms for 1 week was then seen by her primary care doctor and started on Cipro and Flagyl approximately 7 days ago. Was able to tolerate the Flagyl for 4 days and then developed allergic reaction since that time has been only taking Cipro she is here today because the pain is persistently worse now is complaining of epigastric pain she does have nausea no vomiting no fevers no chills no urinary complaints no other symptoms no history of renal colic pain is not modified by diet has been tolerating p.o. without difficulty - Physicial Exam PE: 09/15/19 11:29 Awake alert no acute distress lungs are clear bilaterally heart is regular murmurs rubs or gallops abdomen soft there is mild epigastric tenderness significant left lower quadrant tenderness no rebound no guarding no CVA tenderness extremities are warm well perfused no rash no edema - Medical Decision Making 09/15/19 11:29 74-year-old female here with left lower quadrant pain despite being on outpatient antibiotics possibilities include diverticulitis, UTI pyelonephritis renal colic is much less likely plan CT abdomen pelvis with IV contrast basic labs lipase UA IV hydration antinausea medication and Tylenol for pain
--- NOTE | 2019-09-15 11:30 | PDOC ---
History of Present Illness - General Chief Complaint: Pain Stated Complaint: ABD PAIN Time Seen by Provider: 09/15/19 10:45 - History of Present Illness Initial Comments: 09/15/19 11:24 74 yo F PMH diverticulosis, benign thyroid nodules (last biopsied January 2019), GERD, presenting with LLQ pain. Notably, patient had recent episode of similar pain in January 2019, with CT scan showing small intestine inflammation 2/2 infiltrative vs infectious process. Has had pain for the past 2 weeks, radiating into left lower back, similar in quality to January 2019 episode. Saw her PCP one week ago, who empirically started her on cipro and metronidazole. Only took metronidazole for 4 days before developing headaches and rash and stopping, has three more days of cipro. Here today due to continuing 7/10 LLQ pain despite completing abx course. Developed nausea w/o vomiting today, had two days of diarrhea while on metronidazole. Endorses chronic SOB and chronic urinary frequency without dysuria. Denies CP, CASTILLO, fevers/chills, constipation. Past History - Past Medical History Allergies/Adverse Reactions: Allergies Allergy/AdvReac Type Severity Reaction Status Date / Time Sulfa (Sulfonamide Allergy Mild Verified 09/15/19 10:41 Antibiotics) [Sulfa(Sulfonamide Antibiotics)] Tetracyclines Allergy Unknown Verified 09/15/19 10:41 Iodinated Contrast Media Allergy Verified 09/15/19 10:42 metronidazole [From Flagyl] Allergy Verified 09/15/19 10:42 IV CONTRAST Allergy Uncoded 09/15/19 10:42 Home Medications: Ambulatory Orders Ciprofloxacin HCl [Cipro] 500 mg PO BID 09/15/19 COPD: No GI Disorders: Yes (diverticulosis) Thyroid Disease: Yes (nodules) - Psycho Social/Smoking Cessation Hx Smoking Status: No Smoking History: Never smoked Have you smoked in the past 12 months: No Number of Cigarettes Smoked Daily: 0 Information on smoking cessation initiated: No Hx Alcohol Use: No Drug/Substance Use Hx: No Substance Use Type: None Review of Systems - Review of Systems Comments:: 09/15/19 11:30 GENERAL/CONSTITUTIONAL: denies fever, chills, diaphoresis, generalized weakness , malaise, loss of appetite, weight change HEAD, EYES, EARS, NOSE AND THROAT: denies rhinorrhea, nasal congestion, throat pain, throat swelling, difficulty swallowing, mouth swelling, ear pain, eye pain , visual changes NEUROLOGIC: denies headache, focal weakness or paresthesias, dizziness, unsteady gait, seizure, mental status changes, bladder or bowel incontinence CARDIOVASCULAR: denies chest pain, syncope, palpitations, irregular heart rate, lightheadedness, peripheral edema RESPIRATORY: endorses chronic shortness of breath. Denies cough, dyspnea with exertion, orthopnea, wheezing, stridor, hemoptysis GASTROINTESTINAL: endorses LLQ abdominal pain, nausea w/o vomiting, 2 days of diarrhea starting one week ago. Denies abdominal distension, constipation, melena, hematochezia GENITOURINARY: endorses urinary frequency. Denies dysuria, urgency, hesitancy, hematuria, flank pain, genital pain MUSCULOSKELETAL: denies myalgia, arthralgia, joint swelling, back pain, neck pain SKIN: denies rash, itching, pallor HEMATOLOGIC/IMMUNOLOGIC: denies easy bleeding, easy bruising, lymphadenopathy, frequent infections ENDOCRINE: denies unexplained weight gain, unexplained weight loss, heat intolerance, cold intolerance PSYCHIATRIC: denies anxiety, depression, suicidal or homicidal ideation, hallucinations *Physical Exam - Vital Signs Last Vital Signs Temp Pulse Resp BP Pulse Ox 97.7 F 89 18 144/81 97 09/15/19 10:40 09/15/19 10:40 09/15/19 10:40 09/15/19 10:40 09/15/19 10:40 - Physical Exam 09/15/19 11:32 GENERAL: Awake, alert, and fully oriented, in no acute distress. HEAD: Normal with no signs of trauma. EYES: Pupils equal, round and reactive to light, extraocular movements intact, sclera anicteric, conjunctiva clear. No lid lag. EARS, NOSE, THROAT: Ears normal, nares patent, oropharynx clear without exudates. Dry mucous membranes. NECK: Normal range of motion, supple without lymphadenopathy or JVD LUNGS: Breath sounds equal, clear to auscultation bilaterally. No wheezes, and no crackles. No accessory muscle use. HEART: Regular rate and rhythm, normal S1 and S2 without murmur, rub or gallop. ABDOMEN: Soft, LLQ and epigastric tenderness, non-distended, normoactive bowel sounds, negative guarding, negative rebound MUSCULOSKELETAL: Normal range of motion at all joints. No bony deformities or tenderness. L CVA tenderness. UPPER EXTREMITIES: 2+ pulses, warm, well-perfused. No cyanosis. No clubbing. Cap refill <2 seconds. No peripheral edema. LOWER EXTREMITIES: 2+ pulses, warm, well-perfused. No calf tenderness. No peripheral edema. NEUROLOGICAL: Cranial nerves II-XII intact. Normal speech. Normal gait. PSYCHIATRIC: Cooperative. Good eye contact. Appropriate mood and affect. SKIN: Warm, dry, normal turgor, no rashes or lesions noted. ED Treatment Course - LABORATORY CBC & Chemistry Diagram: 09/15/19 11:25 09/15/19 11:25 Medical Decision Making - Medical Decision Making 09/15/19 11:33 Concern for diverticulitis v kidney stone v pancreatitis v small intestine inflammation. - CBC, CMP - lipase - UA, UC - 1L LR - Ofirmev - Zofran 09/15/19 11:34 UA unremarkable. 09/15/19 12:42 Labs unremarkable, imaging showing diverticulosis without diverticulitis, but with moderate fecal retention. This may be the cause of the patient's pain. Will dc with close GI follow-up, recommend probiotics and to stop the ciprofloxacin. Discharge - Discharge Information Problems reviewed: Yes Clinical Impression/Diagnosis: Abdominal pain Condition: Stable Disposition: HOME - Admission No - Follow up/Referral Referrals: Jose E Araiza MD [Primary Care Provider] - Adán Chi MD [Staff Physician] - - Patient Discharge Instructions Patient Printed Discharge Instructions: DI for Abdominal Pain-Adult Additional Instructions: You were seen with abdominal pain. Your labs did not show any concerning abnormalities, and your imaging showed fecal retention. This could be the source of your pain. Please stop the ciprofloxacin and include probiotics into your diet. Please follow up with a GI doctor within one week; the number is included in this paperwork. Return to the ED if you develop worsening symptoms. - Post Discharge Activity
[2019-09-15] MEDS ORDERED: ACETAMINOPHEN INJECTION 100 ML IVPB ONE (11:32)
[2019-09-15] MEDS ORDERED: ONDANSETRON 4 MG/2 ML VIAL ONE (11:32)
[2019-09-15 11:43] LABS: BASO % 0.5 % (0-2.0); EOS % 1.6 % (0-4.5); HEMATOCRIT 37.3 % (32.4-45.2); HEMOGLOBIN 12.3 GM/dl (10.7-15.3); MCH 27.9 pg (25.7-33.7); MEAN CELL VOLUME 84.7 fl (80-96); MEAN PLT VOLUME 9.4 fl (7.5-11.1); MONO % 7.5 % (3.8-10.2); NEUT % 73.4 % (42.8-82.8); PLATELET COUNT 275 K/MM3 (134-434); RBC 4.41 M/mm3 (3.60-5.2); RDW 12.9 % (11.6-15.6); WHITE BLOOD COUNT 4.6 K/mm3 (4.0-10.8)
[2019-09-15 11:49] LABS: BILIRUBIN,TOTAL 0.4 mg/dl (0.2-1); CALCIUM 9.2 mg/dl (8.5-10); CREATININE 0.6 mg/dl (0.55-1.3); POTASSIUM 3.8 mmol/L (3.5-5.1); TOT PROT 7.8 g/dl (6.4-8.2)
== END 2019-09-15 12:50 | disposition home or self-care (01) ==
LOC: FER 10:40
PROC: 3E033NZ Introduction of Analgesics, Hypnotics, Sedatives into Peripheral Vein, Percutaneous Approach (ICD-10-PCS; principal; 2019-09-15)
PROC: 3E033GC Introduction of Other Therapeutic Substance into Peripheral Vein, Percutaneous Approach (ICD-10-PCS; 2019-09-15)
DX: R10.9 Unspecified abdominal pain (principal); Z88.2 Allergy status to sulfonamides; Z88.8 Allergy status to other drugs, medicaments and biological substances; E07.9 Disorder of thyroid, unspecified; K57.92 Diverticulitis of intestine, part unspecified, without perforation or abscess without bleeding
CPT/HCPCS: 36415; 74176-TC; 80053; 81003; 83690; 85025; 87086; 87186; 96361; 96365; 96375; 99285-25; J0131

== ENCOUNTER 2020-12-30 08:37 | Emergency (ER) | payer OTHER, BC ==
[2020-12-30 08:43] VITALS: BP 162/88; PULSE 92; TEMP 98.6; BMI 23.8
[2020-12-30] MEDS ORDERED: ACETAMINOPHEN 1000 MG/100 ML VIAL (NON FORMULARY) IVPB ONE (08:49)
[2020-12-30] MEDS ORDERED: ACETAMINOPHEN INJECTION 100 ML IVPB ONE (09:17)
[2020-12-30 09:33] LABS: BASO % 0.7 % (0-2.0); EOS % 1.1 % (0-4.5); HEMATOCRIT 35.4 % (32.4-45.2); HEMOGLOBIN 11.6 GM/dl (10.7-15.3); LYMPH % 11.8 % (8-40); MCHC 32.9 g/dl (32.0-36.0); MEAN CELL VOLUME 84.9 fl (80-96); MEAN PLT VOLUME 9.1 fl (7.5-11.1); MONO % 6.8 % (3.8-10.2); NEUT % 79.6 % (42.8-82.8); PLATELET COUNT 226 K/MM3 (134-434); RBC 4.17 M/mm3 (3.60-5.2); RDW 13.4 % (11.6-15.6); WHITE BLOOD COUNT 5.2 K/mm3 (4.0-10.8)
[2020-12-30 09:46] LABS: ALBUMIN 4.1 g/dl (3.4-5.0); ALK PHOS 76 U/L (45-117); ANION GAP 9 MMOL/L (8-16); BILIRUBIN,TOTAL 0.7 mg/dl (0.2-1); CALCIUM 9.4 mg/dl (8.5-10); CHLORIDE 103 mmol/L (98-107); CO2 25 mmol/L (21-32); CREATININE 0.6 mg/dl (0.55-1.3); GLUCOSE,RANDOM 111 mg/dl (74-106); SGOT/AST 16 U/L (15-37); SGPT/ALT 16 U/L (13-61); SODIUM 137 mmol/L (136-145); TOT PROT 7.6 g/dl (6.4-8.2)
[2020-12-30 11:27] LABS: LIPASE 91 U/L (73-393)
== END 2020-12-30 10:30 | disposition home or self-care (01) ==
LOC: FER 08:37
PROC: 3E0333Z Introduction of Anti-inflammatory into Peripheral Vein, Percutaneous Approach (ICD-10-PCS; principal; 2020-12-30)
DX: R10.84 Generalized abdominal pain (principal); K59.00 Constipation, unspecified; K57.90 Diverticulosis of intestine, part unspecified, without perforation or abscess without bleeding
CPT/HCPCS: 36415; 74176-TC; 80053; 82550; 83690; 84484; 85025; 93005; 99285-25; J0131

== ENCOUNTER 2025-02-10 09:55 | Emergency (ER) | payer OTHER, BC ==
[2025-02-10 10:08] VITALS: BP 148/68; PULSE 78; RESP 18; TEMP 97.8; BMI 22.3
[2025-02-10 14:40] LABS: HIV INTERPRETATION NEGATIVE (NEGATIVE)
[2025-02-10 14:42] LABS: HCV DIAGNOSTIC IN-HOUSE W/RFLX NON-REACTIVE (NONREACTIVE)
== END 2025-02-10 12:30 | disposition home or self-care (01) ==
LOC: FER 09:55
DX: M79.672 Pain in left foot (principal); M54.9 Dorsalgia, unspecified; R20.0 Anesthesia of skin
CPT/HCPCS: 36415; 73610-TC-LT-FY; 73630-TC-LT; 86803; 87389; 93971-TC-RT; 99285-25